=== PATIENT | male | born 1950 | race Caucasian/White ===

== ENCOUNTER 2019-04-17 23:20 | Emergency (ER) | payer OTHER ==
--- NOTE | 2019-04-17 23:52 | EDPHYS ---
Physician Documentation [facility] Name: Oliverio Ann Age: 68 yrs Sex: Male : 1950 Arrival Date: 04/17/2019 Time: 23:30 Bed 13 Private MD: ED Physician Barbara Whiteside HPI: 04/17 23:55 This 68 yrs old Male presents to ER via Ambulatory with complaints of snw Laceration to toes. 23:55 The patient presents with a laceration, dirty, simple, to second right distal toe. The snw complaints affect the right foot. Context: [place] resulted [place] stubbing toe on the patient can fully bear weight, on filet knife. Onset: The symptoms/episode began/occurred suddenly, just prior to arrival. Associated signs and symptoms: The patient has no apparent associated signs or symptoms. Severity of symptoms: At their worst the symptoms were mild. The patient has not experienced similar symptoms in the past. It is unknown whether or not the patient has recently seen a physician. pt states he is up to date on immunizations. Historical: - Allergies: 23:43 No Known Allergies; jd3 - Home Meds: 23:43 pravastatin oral oral [Active]; jd3 - PMHx: 23:43 High Cholesterol; jd3 - PSHx: 23:43 patuitary tumer removed; jd3 - Immunization history:: Adult Immunizations up to date, Last tetanus immunization: < 5 years ago. - Social history:: Smoking status: Patient/guardian denies using tobacco. - Ebola Screening: : Patient negative for fever greater than or equal to 101.5 degrees Fahrenheit, and additional compatible Ebola Virus Disease symptoms. ROS: 23:54 Constitutional: Negative for fever, chills, and weight loss, Eyes: Negative for injury, snw pain, redness, and discharge, ENT: Negative for injury, pain, and discharge, Neck: Negative for injury, pain, and swelling, Cardiovascular: Negative for chest pain, palpitations, and edema, Respiratory: Negative for shortness of breath, cough, wheezing, and pleuritic chest pain, Abdomen/GI: Negative for abdominal pain, nausea, vomiting, diarrhea, and constipation, Back: Negative for injury and pain, : Negative for injury, bleeding, discharge, and swelling, MS/Extremity: Negative for injury and deformity, Skin: Negative for rash and discoloration, + laceration to two toes with filet knife Neuro: Negative for headache, weakness, numbness, tingling, and seizure. Exam: 23:52 Constitutional: This is a well developed, well nourished patient who is awake, alert, snw and in no acute distress. Head/Face: Normocephalic, atraumatic. Eyes: Pupils equal round and reactive to light, extra-ocular motions intact. Lids and lashes normal. Conjunctiva and sclera are non-icteric and not injected. Cornea within normal limits. Periorbital areas with no swelling, redness, or edema. ENT: Nares patent. No nasal discharge, no septal abnormalities noted. Tympanic membranes are normal and external auditory canals are clear. Oropharynx with no redness, swelling, or masses, exudates, or evidence of obstruction, uvula midline. Mucous membranes moist. Neck: Trachea midline, no thyromegaly or masses palpated, and no cervical lymphadenopathy. Supple, full range of motion without nuchal rigidity, or vertebral point tenderness. No Meningismus. Chest/axilla: Normal chest wall appearance and motion. Nontender with no deformity. No lesions are appreciated. Cardiovascular: Regular rate and rhythm with a normal S1 and S2. No gallops, murmurs, or rubs. Normal PMI, no JVD. No pulse deficits. Respiratory: Lungs have equal breath sounds bilaterally, clear to auscultation and percussion. No rales, rhonchi or wheezes noted. No increased work of breathing, no retractions or nasal flaring. Abdomen/GI: Soft, non-tender, with normal bowel sounds. No distension or tympany. No guarding or rebound. No evidence of tenderness throughout. Back: No spinal tenderness. No costovertebral tenderness. Full range of motion. MS/ Extremity: Pulses equal, no cyanosis. Neurovascular intact. Full, normal range of motion. Neuro: Awake and alert, GCS 15, oriented to person, place, time, and situation. Cranial nerves II-XII grossly intact. Motor strength 5/5 in all extremities. Sensory grossly intact. Cerebellar exam normal. Normal gait. Psych: Awake, alert, with orientation to person, place and time. Behavior, mood, and affect are within normal limits. 23:52 Skin: Appearance: normal except for affected area, injury, avulsion(s), a small of the Right fourth toenail, laceration(s), the wound is approximately 2 cm(s), with a depth of 2 cm(s), of the Right second toenail. Vital Signs: 23:43 BP 131 / 87; Pulse 86; Resp 17 S; Temp 98.0(O); Pulse Ox 96% on R/A; Weight 106.59 kg jd3 (R); Height 6 ft. 3 in. (190.50 cm) (R); Pain 01/04; 04/18 00:30 BP 132 / 79; Pulse 78; Resp 16; Pulse Ox 96% on R/A; jb4 04/17 23:43 Body Mass Index 29.37 (106.59 kg, 190.50 cm) jd3 Laceration: 00:30 Wound Repair of 2cm ( 0.8in ) subcutaneous laceration to right foot. Skin/tissue flap snw noted.. Distal neuro/vascular/tendon intact. Anesthesia: Local anesthetic administered with 4 mls of 1% lidocaine. Wound prep: Extensive cleansing with hibiclenz, Wound debrided minimally. Skin closed with 4 4-0 Prolene using simple sutures and sterile technique. Dressed with Radha, non-adherent dressing. Patient tolerated well. MDM: 04/17 23:42 Patient medically screened. snw 23:53 Data reviewed: vital signs, nurses notes. Data interpreted: Pulse oximetry: on room air snw is 96 %. Interpretation: acceptable. Counseling: I had a detailed discussion with the patient and/or guardian regarding: the historical points, exam findings, and any diagnostic results supporting the discharge/admit diagnosis, the need for outpatient follow up, to return to the emergency department if symptoms worsen or persist or if there are any questions or concerns that arise at home. Response to treatment: the patient's symptoms have markedly improved after treatment. Special discussion: I discussed in detail with the patient the higher chance of wound infection based on his presenting history. Based on the history and exam findings, there is no indication for further emergent testing or inpatient evaluation. I discussed with the patient/guardian the need to see the primary care provider for further evaluation of the symptoms. 04/17 23:48 Order name: Wound Care; Complete Time: 00:29 snw 04/17 23:48 Order name: Wound dressing; Complete Time: 00:44 snw Administered Medications: 04/18 00:05 Drug: Doxycycline 100 mg Route: PO; jb4 00:44 Follow up: Response: No adverse reaction jb4 00:15 Drug: Lidocaine (1 %) 5 mg {Note: administered by ED provider..} Route: Infiltration; jb4 00:40 Drug: Prentice 5 mg-325 mg 1 tabs Route: PO; jb4 00:44 Follow up: Response: Medication administered at discharge. jb4 Disposition: 02:59 Co-signature as Attending Physician, Barbara Whiteside MD. ma2 Disposition: 04/17/19 23:51 Discharged to Home. Impression: Laceration without foreign body of right lesser toe(s) with damage to nail, avulsion of skin from right lesser toe. - Condition is Stable. - Discharge Instructions: Laceration Care, Adult, Sutured Wound Care, Deep Skin Avulsion. - Prescriptions for Doxycycline Hyclate 100 mg Oral Tablet - take 1 tablet by ORAL route every 12 hours; 20 tablet. Tylenol- Codeine #3 300-30 mg Oral Tablet - take 2 tablet by ORAL route every 6 hours As needed; 6 tablet. - Medication Reconciliation Form, Thank You Letter, Antibiotic Education, Prescription Opioid Use form. - Follow up: Private Physician; When: 7 - 10 days; Reason: Staple/Suture removal. Signatures: Johanna Yeager, PATIENT CENTERED CARE SPECIALIST-C PATIENT CENTERED CARE SPECIALIST-Csnw Darrian Mcmahan RN RN jb4 Kavin Rosa RN RN jd3 Barbara Whiteside MD MD ma2 Corrections: (The following items were deleted from the chart) 00:51 04/17 23:51 04/17/2019 23:51 Discharged to Home. Impression: Laceration without foreign jb4 body of right lesser toe(s) with damage to nail; avulsion of skin from right lesser toe. Condition is Stable. Forms are Medication Reconciliation Form, Thank You Letter, Antibiotic Education, Prescription Opioid Use. Follow up: Private Physician; When: 7 - 10 days; Reason: Staple/Suture removal. snw
--- NOTE | 2019-04-17 23:52 | ER ---
Nurse's Notes [facility] Name: Oliverio Ann Age: 68 yrs Sex: Male : 1950 Arrival Date: 04/17/2019 Time: 23:30 Bed 13 Private MD: Diagnosis: Laceration without foreign body of right lesser toe(s) with damage to nail;avulsion of skin from right lesser toe Presentation: 04/17 23:38 Presenting complaint: Patient states: "[place] stepped on [place] file[place] the [place]. I was jd3 seen across the street and they told me it would probably need stitches, but they didn't take our insurance so they told us to come here. It isn't hurting too bad, I took a Advil at about 2100.". Transition of care: patient was not received from another setting of care. Onset of symptoms was April 17, 2019. Risk Assessment: Do you want to hurt yourself or someone else? Patient reports no desire to harm self or others. Initial Sepsis Screen: Does the patient meet any 2 criteria? No. Patient's initial sepsis screen is negative. Does the patient have a suspected source of infection? No. Patient's initial sepsis screen is negative. Care prior to arrival: None. 23:38 Method Of Arrival: Ambulatory j 23:38 Acuity: CHELSY 4 jd3 Historical: - Allergies: 23:43 No Known Allergies; jd3 - Home Meds: 23:43 pravastatin oral oral [Active]; jd3 - PMHx: 23:43 High Cholesterol; jd3 - PSHx: 23:43 patuitary tumer removed; jd3 - Immunization history:: Adult Immunizations up to date, Last tetanus immunization: < 5 years ago. - Social history:: Smoking status: Patient/guardian denies using tobacco. - Ebola Screening: : Patient negative for fever greater than or equal to 101.5 degrees Fahrenheit, and additional compatible Ebola Virus Disease symptoms. Screenin:45 Abuse screen: Denies threats or abuse. Nutritional screening: No deficits noted. jb4 Tuberculosis screening: No symptoms or risk factors identified. Fall Risk None identified. Assessment: 23:45 General: Appears in no apparent distress. comfortable, Behavior is calm, cooperative, jb4 appropriate for age. Pain: Complains of pain in Right second toenail and Right fourth toenail Pain does not radiate. Pain currently is 3 out of 10 on a pain scale. Quality of pain is described as burning. Neuro: Level of Consciousness is awake, alert, obeys commands, Oriented to person, place, time, situation. Cardiovascular: Patient's skin is warm and dry. Respiratory: Airway is patent Respiratory effort is even, unlabored, Respiratory pattern is regular, symmetrical. GI: No signs and/or symptoms were reported involving the gastrointestinal system. : No signs and/or symptoms were reported regarding the genitourinary system. EENT: No signs and/or symptoms were reported regarding the EENT system. Derm: Skin is pink, warm \\T\\ dry. Wound noted Right second toenail and Right fourth toenail Wound is Lacerations to the 2nd and 4th toes of the right foot. Musculoskeletal: Circulation, motion, and sensation intact. Injury Description: Laceration sustained to Right second toenail and Right fourth toenail is full thickness, 0.5 to 2.5 cm long, not bleeding. 04/18 00:48 Reassessment: Patient appears in no apparent distress at this time. Patient and/or jb4 family updated on plan of care and expected duration. Pain level reassessed. Patient is alert, oriented x 3, equal unlabored respirations, skin warm/dry/pink. Pt ambulated out of Ed with a steady gate, verbalized understanding of d/c and follow up instructions. Vital Signs: 04/17 23:43 BP 131 / 87; Pulse 86; Resp 17 S; Temp 98.0(O); Pulse Ox 96% on R/A; Weight 106.59 kg jd3 (R); Height 6 ft. 3 in. (190.50 cm) (R); Pain 3/10; 04/18 00:30 BP 132 / 79; Pulse 78; Resp 16; Pulse Ox 96% on R/A; jb4 04/17 23:43 Body Mass Index 29.37 (106.59 kg, 190.50 cm) jd3 ED Course: 04/17 23:30 Patient arrived in ED. es 23:35 [facility]C [facility] snw 23:35 Barbara Whiteside MD is Attending Physician. snw 23:40 Triage completed. jd3 23:43 Arm band placed on. jd3 23:45 Patient has correct armband on for positive identification. Placed in gown. Bed in low jb4 position. Call light in reach. Side rails up X 1. Pulse ox on. NIBP on. 23:51 Darrian Mcmahan, RN is Primary Nurse. jb4 04/18 00:30 Assist provider with laceration repair on Right second toenail that was between 2.6 to jb4 7.5 cm using sutures. Set up tray. Performed by Johanna VAIL Dressed with 4X4s, Kerlix, Neosporin, Patient tolerated well. 00:45 Patient did not have IV access during this emergency room visit. jb4 Administered Medications: 00:05 Drug: Doxycycline 100 mg Route: PO; jb4 00:44 Follow up: Response: No adverse reaction jb4 00:15 Drug: Lidocaine (1 %) 5 mg {Note: administered by ED provider..} Route: Infiltration; jb4 00:40 Drug: Wharton 5 mg-325 mg 1 tabs Route: PO; jb4 00:44 Follow up: Response: Medication administered at discharge. jb4 Outcome: 04/17 23:51 Discharge ordered by . sncameron 04/18 00:45 Discharged to home ambulatory, with family. jb4 Condition: stable Discharge instructions given to patient, Instructed on discharge instructions, follow up and referral plans. medication usage, Demonstrated understanding of instructions, follow-up care, medications, Prescriptions given X 2. 00:51 Patient left the ED. jb4 Signatures: Johanna Yeager FNP-C NURSE EPIDEMIOLOGIST-CsnBrandy Clark James, RN RN jb4 Kavin Rosa RN RN jd3 Corrections: (The following items were deleted from the chart) 04/17 23:41 23:38 Presenting complaint: Patient states: "I stepped on a filet knife [place] the beach. I andressa was seen across the street and they told me it would probably need stitches, but they didn't take our insurance so they told us to come here." jd3
[2019-04-18] MEDS ORDERED: LIDOCAINE 1% MPF 5 ML VIAL ONE (00:08)
[2019-04-18] MEDS ORDERED: DOXYCYCLINE 100 MG CAP PO ONE (00:09)
[2019-04-18] MEDS ORDERED: HYDROCODONE/APAP 5/325 MG TAB ONE (00:47)
== END 2019-04-18 00:51 | disposition home or self-care (01) ==
LOC: ER 23:20
PROC: 0JQQ0ZZ Repair Right Foot Subcutaneous Tissue and Fascia, Open Approach (ICD-10-PCS; principal; 2019-04-18)
DX: S91.214A Laceration without foreign body of right lesser toe(s) with damage to nail, initial encounter (principal); E78.00 Pure hypercholesterolemia, unspecified; W26.0XXA Contact with knife, initial encounter; Y93.01 Activity, walking, marching and hiking; Y92.832 Beach as the place of occurrence of the external cause
CPT/HCPCS: 99284